=== PATIENT | female | born 2000 | race Two or more races ===

== ENCOUNTER 2022-11-18 04:36 | Emergency (ER) | payer MEDICAID, OTHER ==
[~2022-11-18] VITALS: Ht 160 cm; Wt 130.0 kg
[2022-11-18 08:42] LABS: Basophils # (auto) 0 10 ^3/uL (0-0.2); Basophils % (auto) 0.5 % (0.0-2.0); Eosinophils # (auto) 0.1 10 ^3/uL (0-0.8); Eosinophils % (auto) 1.1 % (0.0-7.0); Hematocrit 38.9 % (36.0-46.0); Lymphocytes # (auto) 2.2 10 ^3/uL (0.4-5.4); Mean Corpuscular Hemoglobin 29.1 pg (28.0-32.0); Mean Corpuscular Hgb Conc. 33.5 g/dL (32.0-36.0); Monocytes # (auto) 0.7 10 ^3/uL (0-1.3); Monocytes % (auto) 8.7 % (0.0-12.0); Neutrophils # (auto) 4.6 10 ^3/uL (1.6-8.6); Neutrophils % (auto) 60.7 % (37.0-80.0); Red Blood Cells 4.47 10^6/uL (4.0-5.20); Red Cell Distribution Width 13.9 % (11.8-14.3); White Blood Cell 7.5 10^3/uL (4.4-10.8)
[2022-11-18 09:10] LABS: Calcium 9.4 mg/dL (8.5-10.1); Potassium 3.8 mmol/L (3.5-5.1)
[2022-11-18 09:16] LABS: Bilirubin, Total 0.2 mg/dL (0.2-1.0); Magnesium 2.7 mg/dL (1.6-2.6); Total Protein 8.8 g/dL (6.4-8.2)
[2022-11-18 10:01] LABS: Alcohol, Urine < 3.0 mg/dL (0-10); Amphetamine Screen, Urine NEGATIVE (NEGATIVE); Barbiturate Scree,Urine NEGATIVE (NEGATIVE); Benzodiazephine Screen, Urine NEGATIVE (NEGATIVE); Cannabinoid Screen, Urine NEGATIVE (NEGATIVE); Cocaine Screen, Urine NEGATIVE (NEGATIVE); Opiate Scree,Urine NEGATIVE (NEGATIVE); Phencyclidine Screen, Urine NEGATIVE (NEGATIVE)
[2022-11-18 10:34] LABS: Urine Bacteria FEW /hpf (None Seen); Urine Blood Negative /uL (Negative); Urine Clarity HAZY (Clear); Urine Protein, UAD Negative (Negative); Urine Specific Gravity 1.008 (1.001-1.035); Urine Urobilinogen Normal (Negative); Urine WBC 351 /hpf (0 - 5); Urine pH 7.5 (5.0-8.0)
[2022-11-18 10:41] LABS: Urine Color STRAW (Yellow)
[2022-11-18] MEDS ORDERED: NITROFURANTOIN 100 mg CAP PO ONE ×2 (11:30→22:00)
[2022-11-18] MEDS: OLANZapine 5 MG TAB PO SCH ×2 (18:51→22:14)
[2022-11-18 19:50] VITALS: PULSE 115; RESP 20; O2SAT 98
[2022-11-19] MEDS: OLANZapine 5 MG TAB PO SCH ×3 (05:57→22:38)
[2022-11-19 08:32] VITALS: PULSE 88; RESP 16; O2SAT 98
[2022-11-19] MEDS ORDERED: LORazepam 0.5 MG TAB PO ONE (09:00)
[2022-11-19 19:52] VITALS: PULSE 99; RESP 16; O2SAT 97
[2022-11-20] MEDS: OLANZapine 5 MG TAB PO SCH ×3 (07:09→23:18)
[2022-11-20 08:22] VITALS: RESP 16; O2SAT 98
[2022-11-20] MEDS ORDERED: LORazepam 0.5 MG TAB PO ONE (10:00)
[2022-11-21] MEDS: OLANZapine 5 MG TAB PO SCH (06:00)
[2022-11-21 09:15] VITALS: BP 118/62; TEMP 98.2
[2022-11-21] MEDS ORDERED: OLAN5TAB2 PO (09:22)
[2022-11-21 09:54] VITALS: PULSE 60; RESP 20; O2SAT 96
== END 2022-11-21 09:23 | disposition still patient (30) ==
LOC: EDBD 04:36 → ER 04:36
DX: F20.9 Schizophrenia, unspecified (principal); R10.2 Pelvic and perineal pain; N39.0 Urinary tract infection, site not specified; J45.909 Unspecified asthma, uncomplicated; R07.89 Other chest pain
CPT/HCPCS: 36415; 71046; 80053; 80307; 81001; 83735; 84702; 85025